=== PATIENT | male | born 1965 | race African-American/Black ===

== ENCOUNTER 2019-07-16 22:43 | Emergency (ER) | payer MEDICAID, OTHER ==
[~2019-07-16] VITALS: Ht 182.9 cm; Wt 121.1 kg
[~2019-07-16 22:43] MED LIST: CYCLOBENZAPRINE10 MG ORAL; DEXAMETHASONE2 MG PO; FLOMAX0.4 MG ORAL; NAPROSYN500 M1 ORAL; NORCO 5-325 TA1 EACH ORAL; PERCOCET 5-3251 EACH ORAL; PHENERGAN6.25 MG/5 ORAL; POTASSIUM CHLO20 ME3 PO; RANITIDINE HCL150 MG ORAL; ZOFRAN ODT4 MG ORAL
[2019-07-16 23:10] VITALS: BP 130/88
[2019-07-16] MEDS ORDERED: BACLOFEN10 MG ORAL (23:10)
[2019-07-16] MEDS ORDERED: IBUPROFEN600 MG ORAL (23:10)
--- NOTE | 2019-07-16 23:10 | NUR ---
ED Nurse Note: pt ambulated into Ed from home CO pain 8/10 in right toe. Pt reports improperly cutting his toe nail 4 days ago. Pt toe swollen, red, hot. Pt denies decreased sensation in affected toe. VSS, no s/s of distress noted. Pt awaiting ERMD at bedside
--- NOTE | 2019-07-16 23:20 | NUR ---
ED Nurse Note: ERMD at bedside
--- NOTE | 2019-07-17 00:02 | NUR ---
ED Nurse Note: ERmd at bedside with I&D kit
--- NOTE | 2019-07-17 00:21 | NUR ---
ED Nurse Note: Applied dressing to affected toe. Awaiting discharge orders.
[2019-07-17] MEDS ORDERED: CEPHALEXIN500 MG ORAL (00:38)
[2019-07-17] MEDS ORDERED: BACTRIM DS TAB1 EAC1 ORAL (00:38)
[2019-07-17 00:48] VITALS: BP 130/88
--- NOTE | 2019-07-17 00:48 | NUR ---
ER DISCHARGE NOTE: Patient is cleared to be discharged home per ERMD, pt is aox4, on room air, with stable vital signs. pt was given dc and prescription instructions, pt was able to verbalize understanding, pt id band removed. pt is able to ambulate with steady gait. pt took all belongings.
--- NOTE | 2019-07-17 01:46 | Emergency Room Report ---
History of Present Illness General Chief Complaint: Pain Source: Patient Present Illness HPI 54-year-old male presents ED for evaluation. Complaining of pain and swelling to right big toe. Started 1 week ago. Looked online and believes it is an ingrown toe. Pain is throbbing, 7 out of 10, nonradiating. Denies fevers or chills. Denies any recent injury. Denies any discharge. No other aggravating relieving factors. Denies any other associated symptoms Allergies: Coded Allergies: No Known Allergies (Unverified , 07/17/13) Patient History Past Medical History: other - Gallstones Past Surgical History: none Pertinent Family History: none Social History: Denies: smoking, alcohol use, drug use Immunizations: UTD Reviewed Nursing Documentation: PMH: Agreed; PSxH: Agreed Nursing Documentation-PMH Past Medical History: No History, Except For Hx Gastrointestinal Problems: Yes - hx of gallstones Review of Systems All Other Systems: negative except mentioned in HPI Physical Exam Vital Signs Date Time Temp Pulse Resp B/P (MAP) Pulse Ox O2 Delivery O2 Flow Rate FiO2 07/16/19 23:06 97.9 75 14 142/94 (110) 94 Room Air Sp02 EP Interpretation: reviewed, normal General Appearance: no apparent distress, alert, GCS 15, non-toxic Head: normocephalic Eyes: bilateral eye normal inspection, bilateral eye PERRL ENT: normal ENT inspection Neck: normal inspection Respiratory: normal inspection Cardiovascular #1: normal inspection Gastrointestinal: normal inspection Rectal: deferred Genitourinary: no CVA tenderness Musculoskeletal: back normal, normal range of motion, gait/station normal, swelling - erythema/induration surrounding nailbed R big toe. some yellowish discoloration noted at base of nailbed Neurologic: alert, motor strength/tone normal, oriented x3, sensory intact, responsive, speech normal Psychiatric: normal inspection Skin: no rash Lymphatic: normal inspection Procedures Incision and Drainage Incision and Drainage : Consent: Verbal Blade Size: 11 I & D Procedure: betadine prep, sterile drapes applied, sterile dressing applied, gauze wick placed Wound Location: lower extremity - R big toe Wound's Depth, Shape: other Wound Explored: purulent discharge expressed Splint Applied?: No Sling Applied?: No Patient Tolerated: Well Complications: None Medical Decision Making Diagnostic Impression: Primary Impression: Ingrown toenail ER Course Hospital Course 54-year-old M presents to ED s/p swelling R big toe. no trauma Clinical course Patient placed on stretcher. After initial history is full exam reveals a male in no acute distress. There is some swelling and fluctuance around the right big toe nailbed. I discussed with patient. No overlapping nail. I do not believe wedge resection required at this time however we can drain the purulent discharge at the base of the nailbed. Using sterile technique a scalpel was used to lift the tissue from the nail and purulent discharge was expressed. Patient tolerated procedure without complication. Wound cleaned. Dressing applied. Safe for discharge for close outpatient follow-up. I will discharge with antibiotics. I will provide podiatry referral Diagnosis - ingrown toenail Stable and discharged to home with prescription for bactrim, Keflex. wound Care instructions given. Followup with PMD/podiatry. Return to ED if any signs of infection develop Last Vital Signs Date Time Temp Pulse Resp B/P (MAP) Pulse Ox O2 Delivery O2 Flow Rate FiO2 07/17/19 00:48 97.9 68 14 130/88 94 Room Air Status: improved Disposition: HOME, SELF-CARE Condition: Stable Scripts Trimethoprim/Sulfamethoxazole 160/800* (BACTRIM DS TABLET*) 1 Each Tablet 1 TAB ORAL Q12H for 7 Days, #14 TAB 0 Refills Prov: Villa Celeste MD 07/17/19 Cephalexin* (KEFLEX*) 500 Mg Capsule 500 MG ORAL EVERY 6 HOURS for 7 Days, #28 CAP Prov: Villa Celeste MD 07/17/19 Referrals: Cameron Landaverde DPM Patient Instructions: [place] Toenail Villa Celeste MD Jul 17, 2019 01:46
== END 2019-07-17 00:48 | disposition home or self-care (01) ==
LOC: EMR 23:43
DX: L60.0 Ingrowing nail (principal)
CPT/HCPCS: 10060; Z7502; 99283

== ENCOUNTER 2019-08-11 17:38 | Emergency (ER) | payer OTHER ==
[~2019-08-11] VITALS: Ht 182.9 cm; Wt 120.2 kg
[~2019-08-11 17:38] MED LIST changes: +BACLOFEN10 MG ORAL; +BACTRIM DS TAB1 EAC1 ORAL; +CEPHALEXIN500 MG ORAL; +IBUPROFEN600 MG ORAL
--- NOTE | 2019-08-11 17:52 | NUR ---
ED Nurse Note: Called patient. Patient not found in waiting room.
[2019-08-11 18:14] VITALS: BP 103/73
[2019-08-11] MEDS ORDERED: Omnipaque-300 100ml vial INJ PRN (18:15)
[2019-08-11] MEDS ORDERED: DiphenhydrAMINE 50mg/ml Inj IVP ONE (18:15)
[2019-08-11] MEDS ORDERED: Morphine Sulfate 4mg/ml Inj (IV USE ONLY) IVP ONE (18:15)
[2019-08-11] MEDS ORDERED: Ketorolac 30mg Inj IV ONE (18:15)
[2019-08-11] MEDS ORDERED: Metoclopramide 10mg/2ml Inj IVP ONE (18:15)
--- NOTE | 2019-08-11 18:15 | NUR ---
ED Nurse Note:pt. came from home with left abdominal pain radiating to his back, seen by ER
[2019-08-11 18:41] LABS: BASOPHILS % (AUTO) 1.8 % (0.0-2.0); EOSINOPHILS % (AUTO) 4.4 % (0.0-3.0); HEMATOCRIT 41.2 % (42.0-52.0); HEMOGLOBIN 13.6 G/DL (14.2-18.0); LYMPHOCYTES % (AUTO) 27.5 % (20.0-45.0); MEAN CORPUSCULAR VOLUME 83 FL (80-99); MONOCYTES % (AUTO) 6.4 % (1.0-10.0); NEUTROPHILS % (AUTO) 59.9 % (45.0-75.0); PLATELET COUNT 156 K/UL (150-450); RED BLOOD COUNT 4.96 M/UL (4.70-6.10); WHITE BLOOD COUNT 4.8 K/UL (4.8-10.8)
[2019-08-11 18:58] LABS: ANION GAP 12 mmol/L (5-15); BLOOD UREA NITROGEN 19 mg/dL (7-18); CALCIUM 8.7 MG/DL (8.5-10.1); CARBON DIOXIDE 25 MMOL/L (21-32); CHLORIDE 105 MMOL/L (98-107); CREATININE 1.1 MG/DL (0.55-1.30); POTASSIUM 3.6 MMOL/L (3.5-5.1); SODIUM 142 MMOL/L (136-145)
[2019-08-11 19:02] LABS: ALANINE AMINOTRANSFERASE 25 U/L (12-78); ALBUMIN 4.1 G/DL (3.4-5.0); ALBUMIN/GLOBULIN RATIO 1.3 (1.0-2.7); ALKALINE PHOSPHATASE 122 U/L (46-116); ASPARTATE AMINO TRANSFERASE 16 U/L (15-37); BILIRUBIN,TOTAL 0.3 MG/DL (0.2-1.0)
--- NOTE | 2019-08-11 19:06 | NUR ---
ED Nurse Note:blood and urine sent to labs pt. received pain meds and iv fluids, sleeping at this time
--- NOTE | 2019-08-11 19:25 | NUR ---
ED Nurse Note: Patient went down for CT
--- NOTE | 2019-08-11 19:39 | NUR ---
ED Nurse Note: Patient returned from CT. Patient able to void into urinal, urine sample collected.
--- NOTE | 2019-08-11 19:43 | Diagnostic Imaging Report ---
EXAM: CT Abdomen and Pelvis With Intravenous Contrast CLINICAL HISTORY: FLANK TECHNIQUE: Axial computed tomography images of the abdomen and pelvis with intravenous contrast. CTDI is 17.1 mGy and DLP is 971 mGy-cm. One or more of the following dose reduction techniques were used: automated exposure control, adjustment of the mA and/or kV according to patient size, use of iterative reconstruction technique. COMPARISON: None FINDINGS: Lung bases: Unremarkable. No mass. No consolidation. ABDOMEN: Liver: The liver is a steatotic. Gallbladder and bile ducts: There is cholelithiasis without evidence of acute cholecystitis. No ductal dilation. Pancreas: Unremarkable. No mass. No ductal dilation. Spleen: Unremarkable. No splenomegaly. Adrenals: Unremarkable. No mass. Kidneys and ureters: There is delayed enhancement of the left kidney with prominent urothelial enhancement. There is mild hydronephrosis which is secondary to a 5 mm distal ureteral stone. Nonobstructing stones are also seen on the right, measuring up to 5 mm. The right renal collecting system is not dilated. Stomach and bowel: There is no evidence of small or large bowel obstruction. A moderate amount of stool is seen within the colon. There is a normal appendix. No mucosal thickening. PELVIS: Appendix: See above. Bladder: Unremarkable. No mass. Reproductive: Unremarkable as visualized. ABDOMEN and PELVIS: Intraperitoneal space: Unremarkable. No free air. No significant fluid collection. Bones/joints: No acute fracture. No dislocation. Vasculature: No abdominal aortic aneurysm. Lymph nodes: Unremarkable. No enlarged lymph nodes. IMPRESSION: 1. Mild left hydronephrosis secondary to a distal obstructing stone. Secondary pyelonephritis is suspected. Nonobstructing stones are seen on the right. 2. Cholelithiasis without evidence of acute cholecystitis.
--- NOTE | 2019-08-11 19:53 | NUR ---
ED Nurse Note: Third urine sample collected per lab request.
--- NOTE | 2019-08-11 19:58 | Emergency Room Report ---
History of Present Illness General Chief Complaint: Abdominal Pain Source: Patient Present Illness HPI Patient presents with 2 to 3 hours of left flank pain. The pain is fairly severe. It started off low in the abdomen with the urge to urinate. Over the last few days he has felt the urge to defecate also and has been taking stool softeners. He has been taking and increase fluids but still feels somewhat dehydrated. He denies any fevers or chills. The pain started note left anterior flank and now is radiating towards the posterior flank. No medications taken. Pain is rated 10/10 aching and pressure left flank. Patient reports a prior kidney stone. He did pass the stone but never collected it for analysis. This happened somewhere between 2012 and 2014. Patient reports that he is pre-diabetic and not on medication. He denies polyuria or polydipsia. No sore throat, chest pain, palpitations, shortness of breath, joint pain, rashes, depression, anxiety, visual changes, dizziness, headache. COVID-19 risk:Travel to affect: No Allergies: Coded Allergies: No Known Allergies (Unverified , 07/17/13) Patient History Past Medical History: see triage record Social History: Denies: smoking, alcohol use, drug use Social History Narrative From home Reviewed Nursing Documentation: PMH: Agreed; PSxH: Agreed Nursing Documentation-PMH Past Medical History: No History, Except For Hx Cardiac Problems: Yes - CHF Hx Hypertension: No Hx Pacemaker: No Hx Asthma: No Hx COPD: No Hx Diabetes: Yes - PRE DM Hx Cancer: No Hx Gastrointestinal Problems: Yes - hx of gallstones Hx Dialysis: No History Of Psychiatric Problem: No Hx Neurological Problems: No Hx Cerebrovascular Accident: No Hx Seizures: No Review of Systems All Other Systems: negative except mentioned in HPI Physical Exam Vital Signs Date Time Temp Pulse Resp B/P (MAP) Pulse Ox O2 Delivery O2 Flow Rate FiO2 08/11/19 17:54 98.2 68 15 103/73 (83) 97 Room Air Sp02 EP Interpretation: reviewed, normal General Appearance: well appearing, no apparent distress, GCS 15, non-toxic Head: normocephalic Eyes: bilateral eye normal inspection, bilateral eye PERRL, bilateral eye EOMI ENT: moist mucus membranes Neck: supple Respiratory: lungs clear, normal breath sounds Cardiovascular #1: regular rate, rhythm Cardiovascular #2: 2+ radial (R) Gastrointestinal: normal inspection, normal bowel sounds, non tender, no mass, non-distended Genitourinary: no CVA tenderness Musculoskeletal: back normal, normal range of motion, gait/station normal Neurologic: alert, oriented x3, grossly normal Psychiatric: mood/affect normal Skin: no rash, warm/dry Medical Decision Making Diagnostic Impression: Primary Impression: Renal colic on left side ER Course Patient presents with left flank pain fairly acute onset. Differential includes kidney stone, ureterolithiasis, diverticulitis, pyelonephritis, UTI, aortic aneurysm amongst others. Evaluation with EKG, CT of the abdomen and pelvis and labs. Patient treated with IV hydration and analgesia. CT with UVJ stone. Labs essentially unremarkable. EKG no injury. Pain free after CT. discussed findings with patient. Discussed the need to collect the stone. Patient stable for outpatient observation and treatment. Laboratory Tests Test 08/11/19 18:30 08/11/19 19:59 White Blood Count 4.8 K/UL (4.8-10.8) Red Blood Count 4.96 M/UL (4.70-6.10) Hemoglobin 13.6 G/DL (14.2-18.0) L Hematocrit 41.2 % (42.0-52.0) L Mean Corpuscular Volume 83 FL (80-99) Mean Corpuscular Hemoglobin 27.4 PG (27.0-31.0) Mean Corpuscular Hemoglobin Concent 32.9 G/DL (32.0-36.0) Red Cell Distribution Width 14.0 % (11.6-14.8) Platelet Count 156 K/UL (150-450) Mean Platelet Volume 12.6 FL (6.5-10.1) H Neutrophils (%) (Auto) 59.9 % (45.0-75.0) Lymphocytes (%) (Auto) 27.5 % (20.0-45.0) Monocytes (%) (Auto) 6.4 % (1.0-10.0) Eosinophils (%) (Auto) 4.4 % (0.0-3.0) H Basophils (%) (Auto) 1.8 % (0.0-2.0) Sodium Level 142 MMOL/L (136-145) Potassium Level 3.6 MMOL/L (3.5-5.1) Chloride Level 105 MMOL/L (98-107) Carbon Dioxide Level 25 MMOL/L (21-32) Anion Gap 12 mmol/L (5-15) Blood Urea Nitrogen 19 mg/dL (7-18) H Creatinine 1.1 MG/DL (0.55-1.30) Estimate Glomerular Filtration Rate > 60 mL/min (>60) Glucose Level 110 MG/DL (74-106) H Calcium Level 8.7 MG/DL (8.5-10.1) Total Bilirubin 0.3 MG/DL (0.2-1.0) Aspartate Amino Transferase (AST) 16 U/L (15-37) Alanine Aminotransferase (ALT) 25 U/L (12-78) Alkaline Phosphatase 122 U/L (46-116) H Total Protein 7.2 G/DL (6.4-8.2) Albumin 4.1 G/DL (3.4-5.0) Globulin 3.1 g/dL Albumin/Globulin Ratio 1.3 (1.0-2.7) Lipase 277 U/L (73-393) Urine Color Pale yellow Urine Appearance Clear Urine pH 7 (4.5-8.0) Urine Specific Farrell 1.005 (1.005-1.035) Urine Protein Negative (NEGATIVE) Urine Glucose (UA) Negative (NEGATIVE) Urine Ketones Negative (NEGATIVE) Urine Blood 5+ (NEGATIVE) H Urine Nitrite Negative (NEGATIVE) Urine Bilirubin Negative (NEGATIVE) Urine Urobilinogen Normal MG/DL (0.0-1.0) Urine Leukocyte Esterase Negative (NEGATIVE) Urine RBC 20-30 /HPF (0 - 0) H Urine WBC 0-2 /HPF (0 - 0) Urine Squamous Epithelial Cells None /LPF (NONE/OCC) Urine Bacteria Few /HPF (NONE) EKG Diagnostic Results Rate: normal, tachycardiac Rhythm: NSR, other - PVC ST Segments: no acute changes - Nonspecific ST-T wave changes Rhythm Strip Diag. Results EP Interpretation: yes Rhythm: NSR, other - Rate [address]/MRI/US Diagnostic Results CT/MRI/US Diagnostic Results : Imaging Test Ordered: abd/pelvis Impression 1. Mild left hydronephrosis secondary to a distal obstructing stone. Secondary pyelonephritis is suspected. Nonobstructing stones are seen on the right. 2. Cholelithiasis without evidence of acute cholecystitis. Last Vital Signs Date Time Temp Pulse Resp B/P (MAP) Pulse Ox O2 Delivery O2 Flow Rate FiO2 08/11/19 20:40 98.2 68 15 103/73 97 Room Air Status: improved Disposition: HOME, SELF-CARE Condition: Improved Referrals: NON PHYSICIAN (PCP) Chris Gutierrez MD Aug 11, 2019 19:58
[2019-08-11 20:10] LABS: APPEARANCE,URINE CLEAR; BILIRUBIN, URINE NEGATIVE (NEGATIVE); COLOR,URINE PALE YELLOW; GLUCOSE, URINE (UA) NEGATIVE (NEGATIVE); KETONES,URINE NEGATIVE (NEGATIVE); LEUKOCYTE ESTERASE ,URINE NEGATIVE (NEGATIVE); NITRITE,URINE NEGATIVE (NEGATIVE); PH,URINE 7 (4.5-8.0); PROTEIN,URINE NEGATIVE (NEGATIVE); UROBILINOGEN,URINE NORMAL MG/DL (0.0-1.0)
[2019-08-11 20:40] VITALS: BP 103/73
--- NOTE | 2019-08-11 20:40 | NUR ---
ER DISCHARGE NOTE: Patient is cleared to be discharged per ERMD, pt is aox4, on room air, with stable vital signs. pt was given dc and prescription instructions, pt was able to verbalize understanding, pt id band and iv site removed without complications. pt is able to ambulate with steady gait. pt took all belongings.
== END 2019-08-11 20:40 | disposition home or self-care (01) ==
LOC: EMR 18:14
DX: N13.2 Hydronephrosis with renal and ureteral calculous obstruction (principal); K80.20 Calculus of gallbladder without cholecystitis without obstruction; I50.9 Heart failure, unspecified; R73.03 Prediabetes
CPT/HCPCS: 36415; 74177; 80053; 81003; 83690; 85025; 93005; 96361; 96374; 96375; J1200; J1885; J2270; J2765; J7030; Q9967; Z7502; 99284

== ENCOUNTER 2020-02-08 09:31 | Emergency (ER) | payer OTHER ==
[~2020-02-08] VITALS: Ht 182.9 cm; Wt 122.5 kg
[~2020-02-08 09:31] MED LIST changes: +IBUPROFEN600 M1 ORAL; +NORCO 5-325 TA1 EAC1 ORAL
[2020-02-08 09:56] VITALS: BP 110/72
--- NOTE | 2020-02-08 10:08 | Emergency Room Report ---
History of Present Illness General Chief Complaint: Wound Recheck/Suture Removal Source: Patient Present Illness HPI The patient had a neck abscess incised and drained on February 04. He is here for wound check. He states that the wick came out. He denies any fevers or chills. There is still a nodule in the area but the pain is resolved. He is taking antibiotics. Please see full note. February 04. Patient has a history of borderline diabetes. 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 Nursing Documentation: PMH: Agreed; PSxH: Agreed Nursing Documentation-PMH Past Medical History: No History, Except For Hx Cardiac Problems: Yes - CHF Hx Hypertension: No Hx Pacemaker: No Hx Asthma: No Hx COPD: No Hx Diabetes: Yes - PRE DM Hx Cancer: No Hx Gastrointestinal Problems: Yes - hx of gallstones Hx Dialysis: No Hx Neurological Problems: No Hx Cerebrovascular Accident: No Hx Seizures: No Review of Systems Constitutional: Denies: fever Musculoskeletal: Denies: back pain, muscle pain Skin: Reports: see HPI Physical Exam Vital Signs Date Time Temp Pulse Resp B/P (MAP) Pulse Ox O2 Delivery O2 Flow Rate FiO2 02/08/20 09:42 97.7 68 16 110/72 (85) 98 Room Air Sp02 EP Interpretation: reviewed, normal General Appearance: well appearing, no apparent distress, GCS 15 Head: normocephalic Eyes: bilateral eye normal inspection, bilateral eye PERRL ENT: moist mucus membranes Neck: full range of motion, supple, other - See skin Respiratory: normal inspection Cardiovascular #1: regular rate, rhythm Cardiovascular #2: 2+ radial (R) Gastrointestinal: normal inspection Musculoskeletal: gait/station normal Neurologic: alert, grossly normal Psychiatric: mood/affect normal Skin: no rash, other - Area of abscess is decreased in size to however there is still nodularity there. There is no drainage from the incision site. There is no erythema. Medical Decision Making Diagnostic Impression: Primary Impression: Abscess re-check Additional Impression: Subcutaneous cyst ER Course Patient presents post I&D of abscess on February 04. There is no active drainage from the site. There is no erythema and the patient has no fevers or chills. Local care was discussed with the patient and continuing p.o. antibiotics. As this still is a significant nodule it was recommended that he follow-up with a surgeon for excision. Patient stable for outpatient outpatient observation and treatment. Last Vital Signs Date Time Temp Pulse Resp B/P (MAP) Pulse Ox O2 Delivery O2 Flow Rate FiO2 02/08/20 10:16 98.0 76 16 140/80 98 Room Air Status: unchanged Disposition: HOME, SELF-CARE Condition: Stable Chris Gutierrez MD Feb 08, 2020 10:08
[2020-02-08] MEDS ORDERED: Bacitracin Oint UD TOPIC ONE (10:15)
== END 2020-02-08 10:16 | disposition home or self-care (01) ==
LOC: EMR 09:50
DX: Z09 Encounter for follow-up examination after completed treatment for conditions other than malignant neoplasm (principal); B43.2 Subcutaneous pheomycotic abscess and cyst; I50.9 Heart failure, unspecified
CPT/HCPCS: 99281